=== PATIENT | female | born 1955 | race Caucasian/White ===

== ENCOUNTER → 2023-12-18 09:59 | Outpatient (REF) | payer MEDICARE, OTHER, SELFPAY ==
[2023-12-18 11:38] LABS: TSH Reflex To Free T4 2.33 uIU/ml (0.47-4.68)
== END ==
LOC: OIDL 09:59
PROVIDERS: ATTENDING PHYSICIAN Family Medicine
DX: R94.6 Abnormal results of thyroid function studies (principal)
CPT/HCPCS: 36415; 84443

== ENCOUNTER → 2024-03-02 06:41 | Outpatient (REF) | payer MEDICARE, OTHER, SELFPAY | LOC: MRI 06:41 | PROVIDERS: ATTENDING PHYSICIAN Family Medicine | DX: M25.552 Pain in left hip (principal); M24.80 Other specific joint derangements of unspecified joint, not elsewhere classified | CPT/HCPCS: 73721 ==

== ENCOUNTER 2024-05-15 16:51 | Emergency (ER) | payer MEDICARE, OTHER, SELFPAY ==
[2024-05-15 17:07] VITALS: BP 170/96
--- NOTE | 2024-05-15 17:56 | ED.GENMED ---
History of Present Illness
<Divya Strauss PA-C - Last Filed: 05/16/24 00:59>
General
Chief Complaint: Musculo-Skeletal Complaint
Source: patient
Exam Limitations: none
Time Seen by Provider: 05/15/24 17:51
Nursing documentation reviewed up to this point in time: agreed with
History of Present Illness
History of Present Illness:
69-year-old female with past medical history of hypertension, osteoarthritis presenting to the emergency department today with concerns of left hip pain and locking. Patient states that she has had this for a while now and saw Dr. Blandon recently
who evaluated her and recommended hip replacement. Patient states that she declined this because she is going to [facility] in June. Her daughter then referred her to a orthopedist with [facility]. She saw orthopedist who did bedside
ultrasound assessment and she had fluid drained from her left hip and steroid injection. Patient states that this relieved her pain for few weeks however her pain returned. Patient states that she had episode today where her hip locked up and she
could not move for a extended period of time without significant pain. Patient called her orthopedist who was concerned about possible compression fracture. Patient denies any fevers or chills, any back pain, any urinary symptoms any falls.
Review of Systems
<Divya Strauss PA-C - Last Filed: 05/16/24 00:59>
Review of Systems
All Other Systems: ROS reviewed and negative except as documented in HPI and ROS
Phy Exam
<Divya Strauss PA-C - Last Filed: 05/16/24 00:59>
Physical Exam
Physical Exam:
General: Patient is well appearing and in no acute distress; non-toxic
Skin: Warm and dry, no rashes or lesions
Head: Normocephalic, atraumatic
Eyes: Sclera non-icteric. EOMs intact.
Cardiac: Regular rate
Peripheral Vascular: No lower extremity swelling or edema, 2+ dorsalis pedis pulses bilaterally
Pulm: Normal respiratory effort
Musculoskeletal: Mild tenderness palpation of the left hip joint. No overlying ecchymosis or signs of trauma. Pain with internal/external rotation of left hip. Patient able to ambulate but with much assistance
Neuro: CN II-XII intact, no focal neurologic deficits.
Psychiatric: Appropriate mood and affect.
Course
<Divya Strauss PA-C - Last Filed: 05/16/24 00:59>
Orders/Labs/Results
Orders:
Orders
05/15/24 18:42
CR Hip - LT w/wo Pel 2-3 Vw* Urgent
Comment:
Reason For Exam: left hip pain + locking
Include a pelvis x-ray?: Yes
05/15/24 18:47
Oxycodone/Acetaminophen [Percocet 5/325] 1 tablet PO NOW STA
05/15/24 20:42
Crutches-Treatment ONCE
Vital Signs
Initial and Last Documented VS:
Initial Vital Signs
Pulse Resp BP Pulse Ox
68 18 170/96 95
05/15/24 17:07 05/15/24 17:07 05/15/24 17:07 05/15/24 17:07
Last Documented Vital Signs
Pulse Resp BP Pulse Ox
63 18 166/72 99
05/15/24 21:12 05/15/24 21:12 05/15/24 21:12 05/15/24 21:12
<Dhruv Blanton DO - Last Filed: 05/15/24 19:20>
Orders/Labs/Results
Orders:
Orders
05/15/24 18:42
CR Hip - LT w/wo Pel 2-3 Vw* Urgent
Comment:
Reason For Exam: left hip pain + locking
Include a pelvis x-ray?: Yes
05/15/24 18:47
Oxycodone/Acetaminophen [Percocet 5/325] 1 tablet PO NOW STA
05/15/24 20:42
Crutches-Treatment ONCE
Vital Signs
Initial and Last Documented VS:
Initial Vital Signs
Pulse Resp BP Pulse Ox
68 18 170/96 95
05/15/24 17:07 05/15/24 17:07 05/15/24 17:07 05/15/24 17:07
Last Documented Vital Signs
Pulse Resp BP Pulse Ox
63 18 166/72 99
05/15/24 21:12 05/15/24 21:12 05/15/24 21:12 05/15/24 21:12
<Divya Strauss PA-C - Last Filed: 05/16/24 00:59>
MDM/Problems Addressed
Differential Diagnosis Includes:
ddx include osteoarthritis, femoral neck fracture, compression fracture, gluteus pb strain/sprain, ligamentous injury
MDM/Problems Addressed:
Hip pain:
69-year-old female with past medical history of osteoarthritis presenting emergency department today with left sided acute on chronic hip pain. On exam, she appears uncomfortable, does have pain with passive internal/external rotation. Patient
states that while here sitting in the emergency department however, her pain improved. She is also given 1 Percocet here which helped her pain. X-ray evaluation demonstrates mild to moderate degenerative changes of the left hip but no evidence of
fracture or dislocation. Patient feels that she can ambulate safety with the help of walker and crutches at home. We will treat patient with Medrol Dosepak to help with inflammatory changes and we will give her a few Percocet tablets to take
should she have breakthrough pain past her Tylenol, Motrin, and lidocaine patches. Return precautions discussed. Patient stable for discharge, patient will follow-up with her orthopedist
Chronic conditions affecting care:
osteoarthritis
Acute Exacerbation and/or Progression of Chronic Illness:
n/a
<Divya Strauss PA-C - Last Filed: 05/16/24 00:59>
*Radiology
Radiology exam reviewed: preliminary read by ED provider (no acute fracture or dislocation)
*Pulse Oximetry
Patient hypoxic: no
*Critical Care Note
Total Time (30-74mins, 75-104mins- exclusive of procedures): Not Applicable
Data Reviewed
Review of Other/Old Records Reveals: Records (no previous ER physician documentation to review )
Prescriptions/Medications Considered But Not Given:
n/a
Further Testing Considered But Not Given:
n/a
<Divya Strauss PA-C - Last Filed: 05/16/24 00:59>
Patient Management
Escalation/DeEscalation of care consider admission/obs:
Patient stable for discharge. Discussed this case with my attending Dr. Blanton.
ED Attending Note
<Divya Strauss PA-C - Last Filed: 05/16/24 00:59>
-
Portions of this chart may have been created with voice recognition software.� Occasional wrong word or��sound alike� substitutions may have occurred due to the inherent limitations of voice recognition software.
<Dhruv Blanton DO - Last Filed: 05/15/24 19:20>
ED Attending Note
Patient seen and examined by attending physician: Yes
I performed the substantive portion of visit, reviewed & personally made and approve the management plan that is documented in note by myself or BRICE.: Yes
ED Attending Note:
Seen with LISA examined independently acute on chronic left hip pain told she needed hip replacement by orthopedics with nonoperative orthopedist had a steroid injection had relief for a few weeks that worsened today on exam patient nontoxic minimal
pain with range of motion afebrile
Discharge Plan
Departure
Patient Disposition: Home (Routine Discharge)
Date of Disposition: 05/15/24
Time of Disposition: 20:58
Patient with high blood pressure during this ER visit?: Yes
Condition: Good
Discharge Problem:
Osteoarthritis of hip
Instructions: Osteoarthritis, How to Use Crutches
Prescriptions:
New
methylprednisolone [Medrol (Tono)] 4 mg tablets,dose pack
See Rx Instructions .ROUTE .COMPLEX Qty: 21 0RF
Rx Instructions:
orally per package directions
oxycodone-acetaminophen [Percocet] 5-325 mg tablet
1 tab PO Q6HPRN PRN (Reason: pain) Qty: 8 0RF
Referrals:
UNKNOWN - PT DOES,NOT KNOW [Family Provider] -
Activity Restrictions/Additional Instructions:
Please return emergency department should you experience fevers or chills, complete inability to ambulate, falls, chest pain, shortness of breath, or any other signs or symptoms concerning to you.
Please call your orthopedist to schedule follow-up appointment.
Interventions
Interventions:
*Risk Screen - Suicide Last Done: 05/15/24 18:29
*General Assessment Last Done: 05/15/24 17:07
*Neglect/Abuse Screening Last Done: 05/15/24 18:29
*ED COVID-19 Vaccine History Last Done: 05/15/24 17:07
*Nursing Disposition Last Done: 05/15/24 21:12
ED-Musculoskeletal Assessment Last Done: 05/15/24 18:29
Discharge Date and Time
Discharge Date/Time: 05/15/24 21:39
Print Language: MOSOT[place]
[2024-05-15 18:28] VITALS: BMI 27.0
[2024-05-15] MEDS: PERCOCET 5/325 1 TABLET PO (18:56)
[2024-05-15 21:12] VITALS: BP 166/72
== END 2024-05-15 21:39 | disposition home or self-care (01) ==
LOC: EMR 16:51
PROVIDERS: EMERGENCY PHYSICIAN Emergency Medicine
DX: M16.12 Unilateral primary osteoarthritis, left hip (principal); M25.552 Pain in left hip; R26.89 Other abnormalities of gait and mobility; I10 Essential (primary) hypertension; G89.29 Other chronic pain; Z88.2 Allergy status to sulfonamides
CPT/HCPCS: 99283; 73502

== ENCOUNTER → 2024-07-09 06:19 | Day surgery (SDC) | payer MEDICARE, OTHER, SELFPAY | LOC: GI 06:19 | PROVIDERS: ATTENDING PHYSICIAN Internal Medicine Gastroenterology; FAMILY PHYSICIAN Family Medicine | DX: D12.3 Benign neoplasm of transverse colon (principal); K64.8 Other hemorrhoids; Z86.010 Personal history of colon polyps | CPT/HCPCS: 45385; 88305 ==

== ENCOUNTER → 2024-07-15 09:48 | Outpatient (REF) | payer MEDICARE, OTHER, SELFPAY | LOC: WDC 09:48 | PROVIDERS: ATTENDING PHYSICIAN Family Medicine | DX: Z12.31 Encounter for screening mammogram for malignant neoplasm of breast (principal); M81.0 Age-related osteoporosis without current pathological fracture | CPT/HCPCS: 77063; 77067; 77080 ==

== ENCOUNTER → 2024-11-25 11:42 | Outpatient (REF) | payer MEDICARE, OTHER, SELFPAY | LOC: RCS 11:42 | PROVIDERS: ATTENDING PHYSICIAN Orthopaedic Surgery Adult Reconstructive Orthopaedic Surgery; FAMILY PHYSICIAN Family Medicine | DX: Z01.818 Encounter for other preprocedural examination (principal) | CPT/HCPCS: 93005 ==

== ENCOUNTER → 2024-11-27 06:33 | Outpatient (REF) | payer MEDICARE, OTHER, SELFPAY ==
[2024-11-27 07:08] LABS: % Basophils 0.6 % (0-2); % Eosinophils 3.9 % (0-6); % Immature Granulocytes 0.3 % (0-0.5); % Lymphocytes 31.7 % (20.5-51.1); % Monocytes 6.5 % (1.7-9.3); Absolute Eosinophils 0.3 10^3/uL (0-0.7); Absolute Lymphocytes 2.1 10^3/uL (1.2-3.4); Absolute Monocytes 0.4 10^3/uL (0.1-0.6); Absolute Neutrophils 3.7 10^3/uL (1.4-6.5); Mean Corp Hgb Conc. 33.3 g/dL (33.0-37.0); Mean Corpuscular Hgb 29.7 pg (27.0-31.0); Mean Corpuscular Volume 89.2 fL (81.0-99.0); Mean Platelet Volume 9.9 fL (7.4-10.4); Nucleated Red Blood Cells % 0 %; Platelet Count 297 10^3/uL (130-400); Red Blood Cell Count 4.37 10^6/uL (4.20-5.40); Red Cell Dist. Width 13.3 % (11.5-14.5); White Blood Cell Count 6.5 10^3/uL (4.8-10.8)
[2024-11-27 07:27] LABS: Blood Urea Nitrogen 26 mg/dl (7-17); Calcium 9.5 mg/dl (8.4-10.2); Carbon Dioxide 32 mmol/L (22-30); Chloride 100 mmol/L (98-107); Glucose 97 mg/dl (70-99); Potassium 3.9 mmol/L (3.5-5.1); Sodium 138 mmol/L (135-145); eGFR 55.07
[2024-11-27 08:21] LABS: Hepatitis C Antibody Negative (Negative)
[2024-11-27 09:45] LABS: Glycohemoglobin (HgbA1c) 5.8 % (4.0-5.6)
[2024-11-29 08:18] LABS: Fructosamine 244 umol/L (205-285)
== END ==
LOC: REG 06:33
PROVIDERS: ATTENDING PHYSICIAN Orthopaedic Surgery Adult Reconstructive Orthopaedic Surgery; FAMILY PHYSICIAN Family Medicine
DX: Z01.818 Encounter for other preprocedural examination (principal); R73.09 Other abnormal glucose
CPT/HCPCS: 36415; 80048; 82985; 83036; 85025; 86803

== ENCOUNTER → 2024-12-02 14:08 | Outpatient (REF) | payer MEDICARE, OTHER, SELFPAY ==
[2024-12-02 17:08] LABS: Urine Albumin Negative (Neg - Trace); Urine Bilirubin Negative (Negative); Urine Character Clear (Clear); Urine Color Yellow; Urine Glucose Negative (Negative); Urine Ketone Negative (Negative); Urine Leukocyte 2+ (Negative); Urine Nitrite Negative (Negative); Urine Occult Blood 4+ (Negative); Urine Urobilinogen Negative (Neg - 1+); Urine pH 6.5 (5.0-9.0)
[2024-12-02 17:18] LABS: Urine Squamous Cell 0-2 /LPF (Few)
[2024-12-02 17:19] LABS: Urine Bacteria Few (Negative); Urine Red Blood Cell 0-2 /HPF (0-2); Urine White Cell 26-30 /HPF (0-5)
== END ==
LOC: CLAB 14:08
PROVIDERS: ATTENDING PHYSICIAN Nurse Practitioner Family
DX: R39.15 Urgency of urination (principal)
CPT/HCPCS: 81003; 81015; 87086

== ENCOUNTER → 2024-12-12 11:54 | Outpatient (REF) | payer MEDICARE, OTHER, SELFPAY ==
[2024-12-12 13:51] LABS: Urine Albumin Negative (Neg - Trace); Urine Bilirubin Negative (Negative); Urine Character Clear (Clear); Urine Color Yellow; Urine Glucose Negative (Negative); Urine Ketone Negative (Negative); Urine Leukocyte 1+ (Negative); Urine Nitrite Negative (Negative); Urine Occult Blood 1+ (Negative); Urine Urobilinogen Negative (Neg - 1+)
[2024-12-12 14:08] LABS: Urine Bacteria Few (Negative); Urine Red Blood Cell 0-2 /HPF (0-2); Urine Squamous Cell 0-2 /LPF (Few)
== END ==
LOC: REG 11:54
PROVIDERS: ATTENDING PHYSICIAN Family Medicine
DX: N39.0 Urinary tract infection, site not specified (principal)
CPT/HCPCS: 81003; 81015; 87086

== ENCOUNTER → 2025-07-23 15:18 | Outpatient (REF) | payer MEDICARE, OTHER, SELFPAY | LOC: WDC 15:18 | PROVIDERS: ATTENDING PHYSICIAN Family Medicine | DX: Z12.31 Encounter for screening mammogram for malignant neoplasm of breast (principal) | CPT/HCPCS: 77063; 77067 ==

== ENCOUNTER → 2025-08-02 08:38 | Outpatient (REF) | payer MEDICARE, OTHER, SELFPAY | LOC: WDC 08:38 | PROVIDERS: ATTENDING PHYSICIAN Family Medicine | DX: R92.8 Other abnormal and inconclusive findings on diagnostic imaging of breast (principal) | CPT/HCPCS: 76642 ==